=== PATIENT | male | born 1980 | race African-American/Black ===

== ENCOUNTER 2019-03-05 11:59 | Emergency (ER) | payer OTHER ==
[2019-03-05 12:17] VITALS: BP 107/53; PULSE 62; TEMP 97.7; BMI 32.5
--- NOTE | 2019-03-05 14:10 | PDOC ---
History of Present Illness - General Chief Complaint: Injury Stated Complaint: SLIP AND FALL Time Seen by Provider: 03/05/19 13:42 - History of Present Illness Initial Comments: 03/05/19 14:09 38-year-old male with mental retardation presents for evaluation after a fall in his face. No loss of consciousness he does have post injury nausea as per his caregiver Past History - Past Medical History Allergies/Adverse Reactions: Allergies Allergy/AdvReac Type Severity Reaction Status Date / Time blueberry Allergy Verified 03/05/19 12:15 shrimp Allergy Verified 03/05/19 12:15 COPD: No Other medical history: severe MR - Psycho Social/Smoking Cessation Hx Smoking History: Never smoked Hx Alcohol Use: No Drug/Substance Use Hx: No Review of Systems - Review of Systems Able to Perform ROS?: No *Physical Exam - Vital Signs Last Vital Signs Temp Pulse Resp BP Pulse Ox 97.7 F 62 16 107/53 L 99 03/05/19 12:11 03/05/19 12:11 03/05/19 12:11 03/05/19 12:11 03/05/19 12:11 - Physical Exam 03/05/19 14:10 There is a subcentimeter nasal laceration and a small subcentimeter laceration of the left eye. Patient is unable to tolerate examination. ED Treatment Course - RADIOLOGY Radiology Studies Ordered: Category Date Time Status FACIAL BONES CT W/O CONTRAST [CT] Stat CT Scan 03/05/19 14:[address] WITHOUT CONTRAST [CT] Stat CT Scan 03/05/19 14:07 Ordered Medical Decision Making - Medical Decision Making 03/05/19 14:10 This patient is not fast-track appropriate he will be transferred to the main emergency room Discharge - Discharge Information Problems reviewed: Yes Clinical Impression/Diagnosis: Closed head injury - Follow up/Referral Referrals: Maria Alejandra Barrow MD [Primary Care Provider] - - Patient Discharge Instructions - Post Discharge Activity
[2019-03-05] MEDS ORDERED: DIPHTH,PERTUSS(ACELL),TET 0.5 ML DISP.SYRIN IM ONE ×2 (14:53→17:06)
--- NOTE | 2019-03-05 16:08 | PDOC ---
Attending Attestation - Resident Resident Name: OtilioYudith - ED Attending Attestation I have performed the following: I have examined & evaluated the patient, The case was reviewed & discussed with the resident, I agree w/resident's findings & plan, Exceptions are as noted - HPI HPI: 03/05/19 16:07 38y M hx of severe MR presents sp mechanical fall with laceration to bridge of nose. Per family the pt was walking in his room, and had an unwitnessed fall, however the family heard him fall and came to check on the patient immediately, so that the patient had struck his nose on the door jam and was bleeding profusely from the bridge of his nose. The patient not did not have any LOC, nausea or vomiting, or change in his mental status. Family was able to clean the patient up, shave his head to and evaluate was home but came because he had a laceration. exam: GENERAL: The patient is awake, alert, Nontoxic - in no acute distress. HEAD: Normocephalic, 1 .5cm laceration to the bridge of his nose as well as a 1cm abrasion under his left eye. EYES: extraocular movements intact, sclera anicteric, conjunctiva clear. ENT: Normal voice, Moist mucous membranes. NECK: Normal range of motion, supple LUNGS: Breath sounds equal, clear to auscultation bilaterally. No wheezes, no rhonchi, no rales. HEART: Regular rate and rhythm, normal S1 and S2 without murmur, rub or gallop. ABDOMEN: Soft, nontender, No guarding, no rebound. No CVA tenderness EXTREMITIES: Normal range of motion, no edema. NEUROLOGICAL: No facial assymetry, Normal speech, PSYCH: Normal mood, normal affect. SKIN: Warm, Dry, normal turgor, Back: No midline tenderness to the cervical, thoracic or lumbar spine Musculoskelatal: FROM of b/l shoulders, elbows, wrist. FROM of hips, knees, ankles - No signs of ecchymosis, erythema, or crepitus noted on palpation extremities, chest wall, clavicals, ribs, back. will defer CT due to low risk mechanism and lack of red flags will close his laceration with glue anaticipate dc with pmd
--- NOTE | 2019-03-05 17:08 | PDOC ---
History of Present Illness - General Chief Complaint: Injury Stated Complaint: SLIP AND FALL Time Seen by Provider: 03/05/19 13:42 - History of Present Illness Initial Comments: 03/05/19 17:08 alceration to the L nasal bridge and under left eye after trip and fall glue applied, wound well aproximated Past History - Past Medical History Allergies/Adverse Reactions: Allergies Allergy/AdvReac Type Severity Reaction Status Date / Time blueberry Allergy Verified 03/05/19 12:15 shrimp Allergy Verified 03/05/19 12:15 COPD: No Other medical history: severe MR - Psycho Social/Smoking Cessation Hx Smoking History: Never smoked Hx Alcohol Use: No Drug/Substance Use Hx: No *Physical Exam - Vital Signs Last Vital Signs Temp Pulse Resp BP Pulse Ox 97.7 F 62 16 107/53 L 99 03/05/19 12:11 03/05/19 12:11 03/05/19 12:11 03/05/19 12:11 03/05/19 12:11 Procedures - Laceration/Wound Repair Left Face Wound Length: to 2.5 cm Wound Explored: clean Wound's Depth, Shape: superficial Irrigated w/ Saline: Yes Wound Debrided: minimal Wound Repaired With: Dermabond Left Nose Wound Length: to 2.5 cm Wound Explored: clean Wound's Depth, Shape: superficial Irrigated w/ Saline: Yes Wound Debrided: minimal Wound Repaired With: Dermabond Discharge - Discharge Information Problems reviewed: Yes Clinical Impression/Diagnosis: Laceration Condition: Stable Disposition: HOME - Admission No - Follow up/Referral Referrals: Maria Alejandra Barrow MD [Primary Care Provider] - - Patient Discharge Instructions Patient Printed Discharge Instructions: DI for Laceration Repair, DI for Laceration Repair With Dermabond Additional Instructions: Jamil was seen for a laceration to the face His wound was closed with dermabond glue Monitor the wound for rash, redness or drainage Return to the ER if those symptoms occur or if he develops a fever Keep the wound dry for 24 hour, avoid scented lotions or soaps. - Post Discharge Activity
== END 2019-03-05 17:18 | disposition home or self-care (01) ==
LOC: JER 11:59 → JERFT 11:59 → JER 17:18
PROC: 0HQ1XZZ Repair Face Skin, External Approach (ICD-10-PCS; principal; 2019-03-05)
PROC: 3E0234Z Introduction of Serum, Toxoid and Vaccine into Muscle, Percutaneous Approach (ICD-10-PCS; 2019-03-05)
DX: S01.21XA Laceration without foreign body of nose, initial encounter (principal); S01.112A Laceration without foreign body of left eyelid and periocular area, initial encounter; W18.09XA Striking against other object with subsequent fall, initial encounter; Y93.89 Activity, other specified; Y92.032 Bedroom in apartment as the place of occurrence of the external cause; Y99.8 Other external cause status; F79 Unspecified intellectual disabilities; Z91.013 Allergy to seafood; Z91.018 Allergy to other foods
CPT/HCPCS: 12011-25; 90471; 90715; 99281-25